=== PATIENT | female | born 1960 ===

== ENCOUNTER → 2022-01-12 | Outpatient (CLI) | payer MEDICARE, MEDICAID ==
[~2022-01-12] MED LIST: RT-ALBUTEROL SULF 2.5 MG/3 ML PRE-MIX VIAL INH ONE
--- NOTE | 2022-01-12 16:53 | Diagnostic Imaging Report ---
INDICATION: Nonspecific interstitial pneumonia. TIME OF EXAM: 4:40 PM. COMPARISON: No prior studies are available for comparison. FINDINGS: The heart size is normal. There are some mild prominent interstitial markings in the right upper lung field. There are also some mild left perihilar interstitial changes. No parenchymal consolidation is seen. There is no effusion or pneumothorax. IMPRESSION: There are some prominent interstitial markings in the right upper lobe and left perihilar region, acuity indeterminate. The study is otherwise unremarkable. Dictated by: Dictated on workstation # [id number]
== END ==
LOC: RT 15:45
PROVIDERS: ATTEND Internal Medicine Critical Care Medicine
DX: J84.89 Other specified interstitial pulmonary diseases (principal); U09.9 Post COVID-19 condition, unspecified; J96.11 Chronic respiratory failure with hypoxia; R09.02 Hypoxemia; G47.33 Obstructive sleep apnea (adult) (pediatric)
CPT/HCPCS: 71046; 94060; 94621